=== PATIENT | female | born 1965 | race Caucasian/White ===

== ENCOUNTER 2018-04-12 11:33 | Day surgery (SDC) | payer BC, SELFPAY ==
[2018-04-12 11:50] VITALS: BP 118/78; PULSE 85; RESP 16; TEMP 35.9; O2SAT 97
[2018-04-12 12:04] VITALS: BP 118/78; PULSE 85; RESP 16; TEMP 35.9; O2SAT 97
[2018-04-12] MEDS: Lactated Ringers 1,000 ML 30 ML IV (12:20)
[2018-04-12] MEDS: Cellulose,Oxidized 2X3 PKT 1 EACH MC (14:35)
[2018-04-12] MEDS: Bupivacaine 0.25% Pres-Free 30 ML VIAL (14:36)
--- NOTE | 2018-04-12 14:51 | PDOC.DSDIS_ITS ---
Discharge Plan Disposition Patient Disposition: HOME Condition: Good Discharge Details Reason For Visit: ANAL PAIN Attending Provider: Héctor Easton Primary Care Provider: Elsa Childress Home Meds and New Rx's Prescriptions: Continue lorazepam 1 MG tablet 1 mg PO HS PRNRF: 0 sertraline 100 MG tablet 100 mg PO HS RF: 0 dextroamphetamine-amphetamine [Adderall XR] 30 MG capsule,extended release 24hr 30 mg PO DAILY RF: 0 multivitamin [Daily Multi-Vitamin] 1 EACH tablet 1 ea PO DAILY RF: 0 cyanocobalamin (vitamin B-12) 1,000 MCG tablet 1,000 mcg PO DAILY RF: 0 coenzyme Q10 100 MG capsule 100 mg PO DAILY RF: 0 chromium picolinate 400 MCG tablet 500 mcg PO DAILY RF: 0 folic acid [FA-8] 0.8 MG capsule 0.8 mg PO DAILY RF: 0 biotin 2,500 MCG capsule 5,000 mcg PO DAILY RF: 0 Lactobacillus acidophilus [Probiotic] 1 EACH capsule 1 ea PO DAILY RF: 0 Digestive 8/L.acidoph/Pectin [Digestive Enzymes Tablet] 1 EACH tablet 1 ea PO DAILY RF: 0 ared-2 eye vitamins 1 tab PO DAILY RF: 0 rosuvastatin [Crestor] 10 MG tablet 10 mg PO DAILY Qty: 90 RF: 3 bimatoprost [Latisse] 5 ML drops with applicator 5 ml Topical .QOD RF: 0 meloxicam 15 MG tablet 15 mg PO DAILY Qty: 90 RF: 0 acyclovir 400 MG tablet 400 mg PO TID Qty: 15 RF: 0 magnesium 250 mg Tablet 250 mg PO DAILY RF: 0 ferrous sulfate [iron] 325 mg (65 mg iron) Tablet 325 mg RF: 0 Discharge Instructions Instructions: Sphincterotomy (DC), Anal Fissure (GEN) Referrals: Héctor Easton DO [ [facility] STAFF PHYSICIAN] - 04/24/18 1:30 pm (Follow up after EUA with lateral sphincterotomy) Activity:: see instructions Remove Dressings/Wound Care:: 48 hours Shower/Bathe:: 48 hours Diet:: resume regular diet Discharge Orders Discharge Orders: Discharge Order (Routine); Ordered 04/12/18 Ordered By: Héctor Easton DS: Diagnosis Discharge Diagnosis (1) Anal or rectal pain: Status: Acute Asessment and Plan: Recommended EUA of anus and rectum with possible lateral sphincterotomy. Reviewed the procedure with Ms. Oliva, discussed the risks of the procedure with her. All her questions were answered to her satisfaction.
--- NOTE | 2018-04-12 15:02 | ROE_ITS ---
Date of service: 04/12/18 Time of Service: 14:57 Operative Note DATE OF PROCEDURE: 04/12/18 PRE-OP DIAGNOSIS: Anal Pain POST-OP DIAGNOSIS: other (Anal Fissure) PROCEDURE: 1. Examination of Anus and Rectum under anesthesia 2. Lateral Sphinterotomy SURGEON: Héctor Easton ALLEY WORKER: Zoraida Hanson ANESTHESIA: MAC (Anesthestisit: Arron Dexter CRNA ASA2; Mallampati II) and local (1.3% exparel mixed with 0.5% marcaine plain) ESTIMATED BLOOD LOSS: 3 PATHOLOGY: none sent COMPLICATIONS: None Patient was transported to: same day Patient's condition: stable Indications: 52 y/o female with symptoms c/w anal fissure, recommend EUA of anus and rectum to evaluate for etiology of anal pain. I reviwed the procedure with Ms. Uma Rubio, all her questions were answered to her satisfaction. She has been schedule for an EUA of anus and rectum Findings: On examining the anus and distal rectum, an anal fissure was identified in the posterior midline. The external sphincter muscle was significantly strictured consistent with a chronic anal fissure. A lateral sphincterotomy was subsequently performed Procedure Description: The patient was brought to the preanesthesia staging area where her identification was confirmed and consent signed. She was then brought to the operating room. An attempt was made to place a saddle block spinal anesthetic, but this was unsuccessful. We then proceeded with monitored anesthesia care and local infiltration around the anus as the plan. Monitoring for telemetry, end-tidal CO2, blood pressure, O2 saturation were applied. An appropriate timeout was taken reviewing the patient's identification, allergies, medications , procedure, and fire risk. The gluteal cleft was standard taping method, the perineum prepped with Betadine, and draped in standard sterile fashion. I began by performing a gentle digital rectal examination. There is no gross blood, no masses present. I then infiltrated my local circumferentially around the anus prior to dilating. I then placed a bullet anoscope and inspected the anus and rectum circumferentially. In the posterior midline, there was clearly a fissure present that seemed to have some chronicity to it. Palpation of the external sphincter muscle demonstrated stricturing of the proximal muscle approximately 1 cm in width and circumferential. No evidence of hemorrhoidal disease or other pathology was apparent. I then directed my attention 90? to the left of the anal fissure. I made a 1.5 cm radial incision, starting at the anal verge and going laterally. I then used blunt dissection with a hemostat to dissect anterior and posterior to the proximal external sphincter muscle. Once this was dissected out which I could clearly palpate anterior and posterior to the muscle; I then used a right angle clamp passed from posterior to anterior under the strictured portion of the external sphincter muscle. I then elevated this into the incision bed so that it was visible. The strictured muscle portion was approximately 1 cm in width. I divided this using cautery; after dividing the muscle I could no longer palpate a strictured segment circumferentially around the anus. I then obtained hemostasis in the wound bed using cautery, and a chromic stitch to oversew one area of bleeding with good hemostasis after stitch placement. I then reinforced my hemostasis using a small piece of Surgicel. 4 x 4's and a kristina-pad were then placed over the wound. There are no complications during the case. The patient tolerated procedure well. She was awakened in the operating room, and brought to the day surgery recovery area in good condition. All counts reported as correct ?2.
[2018-04-12 15:21] VITALS: BP 108/56; PULSE 81; RESP 16; TEMP 36.4; O2SAT 98
--- NOTE | 2018-04-24 14:06 | PDOC.ANES ---
Anesthesia Note Report Anesthesia Note: Called by Dr. Easton to touch base with Katy about ongoing headache. I called her cell phone and spoke to Katy. She states this headache started the day after surgery and she notices it as soon as she wakes up every morning. Headache does not change with position and she states that it is mild as she is still able to drive and ambulate. I expressed that this does not sound like it is a spinal headache given symptoms and that the spinal anesthetic was not successful with dural puncture. She stated that she was interested in going to a chiropractor which seems reasonable. She will call if this does not resolve or gets worse or she will see her PCP.
== END 2018-04-12 16:12 | disposition home or self-care (01) ==
PROVIDERS: PCP Nurse Practitioner; Visit Provider Surgery
PROC: (CPT 46080; principal; 2018-04-12 12:30)
PROC: (CPT 46080; 2018-04-12 12:30)
DX: K60.1 Chronic anal fissure (principal)
CPT/HCPCS: 46080; J1885; J2250

== ENCOUNTER 2018-04-17 14:54 | Outpatient (CLI) | payer BC, SELFPAY ==
[2018-04-17 15:39] LABS: HCT 47.8 % (36.0-46.0); HGB 15.2 g/dL (12.0-15.5); Mean Corp. HGB Concentration 31.8 g/dL (32.0-36.0); Mean Corpuscular Volume 94.5 fL (80-95); Mean Platelet Volume 9.8 fL (8.0-11.0); Platelet Count 238 x1000/uL (130-400); RBC 5.06 m/cumm (4.00-5.20); RBC Distribution Width 13.1 % (11.7-14.6); White Blood Cell Count 5.62 k/cumm (4.4-10.8)
[2018-04-17 16:36] LABS: Total Iron Binding Capacity 362 ug/dL (250-450)
[2018-04-17 17:03] LABS: ALT 21 U/L (12-78); AST 14 U/L (15-37); Albumin 3.8 g/dL (3.4-5.0); Alkaline Phosphatase 135 U/L (46-116); Anion Gap 6.1 mmol/L (3-11); BUN 22 mg/dL (7-18); Bilirubin, Total 0.4 mg/dL (0.2-1.0); CO2 31.9 mmol/L (21.0-32.0); CREATININE 0.77 mg/dL (0.55-1.02); Calcium 9.2 mg/dL (8.5-10.1); Chloride 105 mmol/L (98-107); Cholesterol 310 mg/dL (50-200); Ferritin 94 ng/mL (8-388); Glucose 103 mg/dL (70-100); HDL Cholesterol 78 mg/dL (40-60); LDL CHOLESTEROL 207 mg/dL (<100); Potassium 5.1 mmol/L (3.5-5.1); Sodium 143 mmol/L (136-145); Triglyceride 141 mg/dL (30-150); Vitamin B12 1393 pg/mL (193-986)
== END 2018-04-17 15:14 ==
PROVIDERS: PCP Nurse Practitioner; Visit Provider Nurse Practitioner
DX: Z98.84 Bariatric surgery status (principal)
CPT/HCPCS: 36415; 80053; 80061; 83721; 85027; 82607; 82728; 83550

== ENCOUNTER 2018-05-12 15:16 | Outpatient (REF) | payer BC, SELFPAY ==
[2018-05-12 21:30] LABS: Total Volume 2375 ml
[2018-05-12 21:37] LABS: CLEAVED CELLS 95 mmol/24h (40-220); Sodium, Urine 40 mmol/L
[2018-05-12 21:39] LABS: Creatinine,24hr Ur 1.11 g/24hr (0.60-1.80); Creatinine,Urine 48.22 mg/dL
[2018-05-15 10:18] LABS: Calcium Urine 9.6 mg/dl; Calcium Urine 24 hr 228 mg/24hr (100-300); Magnesium 24hr Urine 182.9 mg/24h (73.0-122.0); Magnesium Random Urine 7.7 mg/dl; Phosphorus Urine 23.3 mg/dl; Phosphorus Urine 24hr 0.6 g/24h (0.4-1.3); Uric Acid Urine 24hr 594 mg/24h (250-750)
[2018-05-15 15:22] LABS: Citrate Excretion, 24hr, U 366 mg/24 h (363 - 1191); Urine Volume 2375 mL
[2018-05-16 15:10] LABS: Oxalate Conc (mmol/L) 0.15 mmol/L; Oxalate Concentration 13.2 mg/L; Oxalate, U 0.36 mmol/24 h; Oxalate, U 31.7 mg/24 h (9.7 - 40.5); Urine Volume 2375 mL
== END 2018-05-12 15:36 ==
LOC: LBN 15:16
PROVIDERS: Nurse Practitioner Gerontology; PCP Nurse Practitioner; Visit Provider Nurse Practitioner
DX: Z87.442 Personal history of urinary calculi (principal)
CPT/HCPCS: 82507; 83735; 81050; 82340; 82570; 83945; 84105; 84300; 84560

== ENCOUNTER 2018-05-15 00:40 | Outpatient (CLI) | payer BC, SELFPAY ==
--- NOTE | 2018-05-15 13:06 | DI.US_ITS ---
SYMPTOM/DIAGNOSIS: BILAT FLANK PAIN, H/O KIDNEY STONES, Z87.442 RENAL ULTRASOUND: The kidneys are normal in size and echogenicity and show normal parenchymal thickness. No hydronephrosis is seen. There are a few tiny echogenic reflectors in the medullary region which could represent non obstructing stones versus vascular calcifications or artifact. No mass or hydronephrosis is seen. The prevoid bladder volume measured 42 cc's. There is a 4 cc. post void residual. No bladder mass or bladder calcification is seen. Both ureteral jets were identified. IMPRESSION: Question of a few tiny bilateral renal calculi versus artifact.
== END 2018-05-15 01:00 ==
PROVIDERS: PCP Nurse Practitioner; Visit Provider Nurse Practitioner Gerontology
DX: R10.31 Right lower quadrant pain (principal); R10.32 Left lower quadrant pain; N20.0 Calculus of kidney; Z87.442 Personal history of urinary calculi
CPT/HCPCS: 76770

== ENCOUNTER 2018-05-15 13:20 | Outpatient (CLI) | payer BC, SELFPAY ==
--- NOTE | 2018-05-15 14:00 | SATEXT_ITS ---
Assessment: Katy presents for nutritional counseling for s/p bariatric surgery. She has gotten to her goal weight and states she would like to be sure to maintain it. She is 68 and 165 lbs. Her BMI is 26.5 kg/m2. Katy reports that she is craving sugar lately and will eat three [place]ic ices in the evenings. She has a [place] yogurt and a banana for breakfast, salad with tuna and avocado for lunch, and has a late supper of a protein shake and avocado. She has been eating gluten free and low lactose. She generally has been very physically active but her physical activity has been reduced in the past week related to some intestinal issues. Nutritional Diagnosis: Inappropriate intake of carbohydrates especially sugars. Intervention: Reviewed some areas in Katy's diet where she could increase her protein which may in turn help to decrease her sugar intake. Also reminded Katy that her physical activity is reduced beyond her control and that physical activity reduces appetite. Her appetite and sugar cravings may be on the rise related to the decreased physical activity. She acknowledged this fact and verbalized that she will be patient with the return of her physical activity. Monitoring and Evaluation: 1. Katy will self monitor her progress and evaluate her need for follow up as needed. Thank you for the referral.
== END 2018-05-15 13:40 ==
PROVIDERS: PCP Nurse Practitioner; Visit Provider Dietitian, Registered
DX: Z98.84 Bariatric surgery status (principal); Z71.3 Dietary counseling and surveillance
CPT/HCPCS: 97802

== ENCOUNTER 2018-05-24 23:41 | Emergency (ER) | payer BC, SELFPAY ==
--- NOTE | 2018-05-24 00:29 | DI.CT_ITS ---
SYMPTOMS/DIAGNOSIS: RIGHT FLANK PAIN CT EXAMINATION OF THE ABDOMEN AND PELVIS: The study was carried out without contrast enhancement. There are no acute findings in the lower thorax. The liver is normal. The gallbladder is normal. There are no stones or ductal dilatation. The pancreas, spleen and adrenals are normal. There are several small nonobstructing renal calculi measuring 1-2 mm in size. There is a 2 mm right UVJ stone causing mild hydronephrosis and perinephric stranding. There is colonic diverticulosis and no evidence of diverticulitis. There is no evidence of an acute appendix. The bladder and reproductive organs are unremarkable. The intraperitoneal space is normal. There is no free air or free fluid. No acute bony abnormality is seen. The soft tissues are unremarkable. There is no aortic aneurysm. Lymph nodes are unremarkable. SUMMARY: Mild hydronephrosis involving the right kidney is demonstrated secondary to a 2 mm right UVJ calculus.
[2018-05-24 23:44] VITALS: BP 142/86; PULSE 83; RESP 24; TEMP 36.5; O2SAT 95
[2018-05-24] MEDS: Normal Saline 1,000 ML 1000 ML IV (23:55)
--- NOTE | 2018-05-24 23:56 | ED.GENADUL_ITS ---
Discharge Plan Disposition Patient Disposition: HOME Condition: Improving Discharge Details Chief Complaint: FlankPain Clinical Impression: Kidney stone on right side Primary Care Provider: Elsa Childress ED Provider: Alec Muse Home Meds and New Rx's Prescriptions: New ciprofloxacin HCl 250 mg tablet 250 mg PO BID Qty: 6 RF: 0 tamsulosin [Flomax] 0.4 mg capsule 0.4 mg PO DAILY Qty: 3 RF: 0 Continue acyclovir 400 mg tablet 400 mg PO TID Qty: 15 RF: 12 lorazepam 1 MG tablet 1 mg PO HS PRNRF: 0 sertraline 100 MG tablet 100 mg PO HS RF: 0 dextroamphetamine-amphetamine [Adderall XR] 30 MG capsule,extended release 24hr 30 mg PO BID RF: 0 multivitamin [Daily Multi-Vitamin] 1 EACH tablet 1 ea PO DAILY RF: 0 cyanocobalamin (vitamin B-12) 1,000 MCG tablet 1,000 mcg PO DAILY RF: 0 coenzyme Q10 100 MG capsule 100 mg PO DAILY RF: 0 chromium picolinate 400 MCG tablet 500 mcg PO DAILY RF: 0 folic acid [FA-8] 0.8 MG capsule 0.8 mg PO DAILY RF: 0 biotin 2,500 MCG capsule 5,000 mcg PO DAILY RF: 0 Lactobacillus acidophilus [Probiotic] 1 EACH capsule 1 ea PO DAILY RF: 0 Digestive 8/L.acidoph/Pectin [Digestive Enzymes Tablet] 1 EACH tablet 1 ea PO DAILY RF: 0 ared-2 eye vitamins 1 tab PO DAILY RF: 0 bimatoprost [Latisse] 5 ML drops with applicator 5 ml Topical .QOD RF: 0 meloxicam 15 MG tablet 15 mg PO DAILY Qty: 90 RF: 0 rosuvastatin [Crestor] 10 mg tablet 10 mg PO DAILY Qty: 90 RF: 3 magnesium 250 mg Tablet 250 mg PO DAILY RF: 0 Discharge Instructions Instructions: Kidney Stones (ED) Additional Instructions: Please follow-up with Kavitha and Dr. Simmons's office in the next 5-10 days. Call for an appointment time. Home to rest today. Antibiotics to begin tomorrow morning by prescription, you are given her first dose tonight. Please take Flomax as prescribed for 3 days time. Return to the emerge part for any acute concern Medical Decision Making 52-year-old female presents with severe right flank pain over hours time similar to previous kidney stone. She is afebrile, anxious, in some distress as I walk into the room. Differential diagnosis would include pyelonephritis, cystitis, as well as renal colic. Patient had IV access established, referred for laboratory testing and urinalysis as well as noncontrast CT scan of the abdomen pelvis. Patient's pain improved following fluids and pain medications. Her laboratories are reassuring with do show white blood cell count of 14, creatinine 1.0, sodium was 135. Urinalysis with ketones and positive leukoesterase. CT scan of the abdomen reveals a 2 mm right UVJ stone. Patient tolerated liquids and solids by mouth. She has no further complaints of pain. I will treat her with Flomax for 3 days as well as a course of ciprofloxacin. She will follow-up with urology with whom she has preestablished care Lab Data Lab results reviewed: Yes I reviewed the patient's lab results. Laboratory Tests Range/Units 05/24/18 05/24/18 05/25/18 23:50 23:50 00:25 WBC (4.4-10.8) k/cumm 14.91 H RBC (4.00-5.20) m/cumm 4.43 Hgb (12.0-15.5) g/dL 13.8 Hct (36.0-46.0) % 40.0 MCV (80-95) fL 90.3 MCH (27.0-33.0) pg 31.2 MCHC (32.0-36.0) g/dL 34.5 RDW (11.7-14.6) % 12.0 Plt Count (130-400) x1000/uL 276 MPV (8.0-11.0) fL 9.3 Immature Gran % 0.3 Neutrophils % 73.7 Lymphocytes % 18.9 Monocytes % 6.2 Eosinophils % 0.7 Basophils % 0.2 Absolute Neutrophils (1.2-6.7) k/cumm 10.99 H Absolute Lymphocytes (1.2-3.4) k/cumm 2.82 Absolute Monocytes (0.11-0.7) k/cumm 0.92 H Absolute Eosinophils (0.0-0.7) k/cumm 0.10 Absolute Basophils (0.0-0.2) k/cumm 0.03 Sodium (136-145) mmol/L 135 L Potassium (3.5-5.1) mmol/L 3.7 Chloride (98-107) mmol/L 98 Carbon Dioxide (21.0-32.0) mmol/L 28.0 Anion Gap (3-11) mmol/L 9.0 BUN (7-18) mg/dL 18 Creatinine (0.55-1.02) mg/dL 1.09 H Estimated GFR/1.73 m2 (mL/min/1.73m2) 53.13 Glucose (70-100) mg/dL 121 H Calcium (8.5-10.1) mg/dL 9.0 Total Bilirubin (0.2-1.0) mg/dL 0.5 AST (15-37) U/L 19 ALT (12-78) U/L 23 Alkaline Phosphatase (46-116) U/L 111 Total Protein (6.4-8.2) g/dL 6.7 Albumin (3.4-5.0) g/dL 3.7 Lipase (73-393) U/L 210 Urine Color (Yellow) Yellow Urine Clarity Sl cloudy Urine pH (5-8) 6.0 Ur Specific [place] (1.005-1.025) 1.025 Urine Protein (Negative) mg/dL Negative Urine Ketones (Negative) mg/dL Trace H Urine Blood (Negative) Negative Urine Nitrite (Negative) Negative Urine Bilirubin (Negative) Negative Urine Urobilinogen (Up TO 0.2) EU/dL 0.2 Ur Leukocyte Esterase (Negative) Trace H Urine Glucose (Negative) mg/dL Negative HPI General Mode of arrival: ambulatory . Date/Time Provider Initiated Documentation: 05/24/18 23:41 . Limitations to Documentation: no limitations . Information obtained by: patient and family . History of Present Illness 52 year old F presents to the emergency department with the chief complaint of Right flank pain, described as severe and similar to prior episodes, Quality is described as constant, and is localized to the back and abdomen. Patient flank. Patient started experiencing this hour(s) and it has been constant. No exacerbating factors reported . Patient notes nausea/vomiting; denies fever/chills. Patient did receive the following treatments prior to arrival, other (Hydrocodone) HPI Narrative: 52-year-old female presents from home with the onset today of hours of right flank pain that is intermittent, radiates to the front, associated with nausea and vomiting, similar to previous kidney stone. She denies recent fever. She does not have chest pain. Related Data Home Medications Medication Instructions Recorded Confirmed lorazepam 1 mg PO HS PRN tab-cap 04/11/17 05/24/18 Ared-2 Eye Vitamins 1 tab PO DAILY 04/28/17 05/24/18 Digestive 8/L.acidoph/Pectin 1 ea PO DAILY 04/28/17 05/24/18 [Digestive Enzymes Tablet] Lactobacillus acidophilus 1 ea PO DAILY 04/28/17 05/24/18 [Probiotic] biotin 5,000 mcg PO DAILY 04/28/17 05/24/18 chromium picolinate 500 mcg PO DAILY 04/28/17 05/24/18 coenzyme Q10 100 mg PO DAILY 04/28/17 05/24/18 cyanocobalamin (vitamin B-12) 1,000 mcg PO DAILY 04/28/17 05/24/18 dextroamphetamine-amphetamine 30 mg PO BID 04/28/17 05/24/18 [Adderall XR] folic acid [FA-8] 0.8 mg PO DAILY 04/28/17 05/24/18 multivitamin [Daily Multi-Vitamin] 1 ea PO DAILY 04/28/17 05/24/18 sertraline 100 mg PO HS tab-cap 04/28/17 05/24/18 bimatoprost [Latisse] 5 ml TOPICAL .QOD 06/20/17 05/24/18 meloxicam 15 mg PO DAILY #90 tab-cap 02/06/18 05/24/18 magnesium 250 mg PO DAILY 04/12/18 05/24/18 acyclovir 400 mg tablet 400 mg PO TID #15 tab-cap 04/17/18 05/24/18 rosuvastatin 10 mg tablet 10 mg PO DAILY #90 tab 04/18/18 05/24/18 ciprofloxacin HCl 250 mg PO BID #6 tab 05/25/18 tamsulosin [Flomax] 0.4 mg PO DAILY #3 cap 05/25/18 Previous Rx's Medication Instructions Recorded meloxicam 15 mg PO DAILY #90 tab-cap 02/06/18 acyclovir 400 mg tablet 400 mg PO TID #15 tab-cap 04/17/18 rosuvastatin 10 mg tablet 10 mg PO DAILY #90 tab 04/18/18 ciprofloxacin HCl 250 mg PO BID #6 tab 05/25/18 tamsulosin [Flomax] 0.4 mg PO DAILY #3 cap 05/25/18 Allergies Allergy/AdvReac Type Severity Reaction Status Date / Time lactose Allergy Intermediate Diarrhea Verified 05/24/18 23:47 adhesive AdvReac Intermediate Verified 05/24/18 23:47 gluten AdvReac Diarrhea Verified 05/24/18 23:47 General Stated Complaint: FlankPain DOLLY: 3 Review of Systems Review of Systems 8 systems reviewed and otherwise negative PFSH Family History Mother Mental disorder Inflammatory bowel disease Father Neoplasm ADHD (attention deficit hyperactivity disorder) Medical History ADD (attention deficit disorder) (Chronic) Anxiety (Chronic) Depression (Chronic) Social History current occupational status: employed current occupation: [employer], 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 Pleasant, well groomed, interactive, anxious HEAD: Normocephalic, atraumatic ENT: Mucous membranes moist, oropharynx unremarkable, External ear exam unremarkable EYES: PERRL, EOMI NECK: Full ROM, no COLTON, no menigismus CHEST/RESP: Nontender, clear to auscultation bilateral, no wheeze/rhonchi/rales CARDIOVASCULAR: RRR, no murmur, rub lilian. 2+ Rad pulse bilateral ABDOMEN: Soft, tender area in the right abdomen, no mass. +Bowel sounds EXT: Full ROM, no edema, no rash Neuro: Grossly normal neurologic exam, conversant, interactive. Psych: Speech fluent, thoughts congruent, affect anxious Course Vital Signs Temperature 36.5 C 05/24/18 23:44 Pulse 83 10/31/18 23:44 Respiratory Rate 24 05/24/18 23:44 Blood Pressure 142/86 H 05/24/18 23:44 Pulse Oximetry 95 05/24/18 23:44 Temperature 36.5 C 05/24/18 23:44 Temperature Source Skin 05/24/18 23:44 Pulse 83 05/24/18 23:44 Respiratory Rate 24 05/24/18 23:44 Respiratory Effort Non-Labored 05/24/18 23:45 Blood Pressure 142/86 H 05/24/18 23:44 Blood Pressure Position Supine 05/24/18 23:44 Pulse Oximetry 95 05/24/18 23:44 Oxygen Delivery Method Room Air 05/24/18 23:44 Oxygen Flow Rate 0 05/24/18 23:44 Pain Level 05/24/18 23:44
[2018-05-24 23:59] LABS: Abs Immature Grans 0.04 k/cumm (0.0-0.09); Absolute Basophil Count 0.03 k/cumm (0.0-0.2); Absolute Lymphocyte Count 2.82 k/cumm (1.2-3.4); Absolute Monocyte Count 0.92 k/cumm (0.11-0.7); Absolute Neutrophil Count 10.99 k/cumm (1.2-6.7); Basophils % 0.2; Eosinophils % 0.7; HGB 13.8 g/dL (12.0-15.5); Immature Grans % 0.3; Lymphocytes % 18.9; Mean Corp. HGB Concentration 34.5 g/dL (32.0-36.0); Mean Corpuscular Hemoglobin 31.2 pg (27.0-33.0); Mean Corpuscular Volume 90.3 fL (80-95); Mean Platelet Volume 9.3 fL (8.0-11.0); Monocytes % 6.2; Neutrophils % 73.7; Platelet Count 276 x1000/uL (130-400); RBC 4.43 m/cumm (4.00-5.20); White Blood Cell Count 14.91 k/cumm (4.4-10.8)
[2018-05-25] MEDS: Ondansetron 4 MG/2 ML VIAL IVP
[2018-05-25] MEDS: LORazepam 2 MG/ML VIAL 1 MG IVP
[2018-05-25] MEDS: HYDROmorphone 2 MG/ML VIAL 1 MG IVP (00:01)
[2018-05-25 00:11] LABS: ALT 23 U/L (12-78); AST 19 U/L (15-37); Albumin 3.7 g/dL (3.4-5.0); Alkaline Phosphatase 111 U/L (46-116); BUN 18 mg/dL (7-18); Bilirubin, Total 0.5 mg/dL (0.2-1.0); CREATININE 1.09 mg/dL (0.55-1.02); Chloride 98 mmol/L (98-107); Estimated GFR 53.13 (mL/min/1.73m2); Glucose 121 mg/dL (70-100); Lipase 210 U/L (73-393); Potassium 3.7 mmol/L (3.5-5.1); Sodium 135 mmol/L (136-145); Total Protein 6.7 g/dL (6.4-8.2)
[2018-05-25 00:33] LABS: Bilirubin Negative (Negative); Blood Negative (Negative); Clarity Sl Cloudy; Glucose Negative (Negative); Ketones Trace mg/dL (Negative); Leukocyte Esterase Trace (Negative); Nitrite Negative (Negative); Specific Gravity 1.025 (1.005-1.025); Urobilinogen 0.2 EU/dL (Up TO 0.2)
[2018-05-25 00:40] LABS: Bacteria Few HPF (Negative); C & S Indicated? No/Sq. Contamination; Casts Negative LPF (Negative); Crystals Negative HPF (Negative); Epithelial Cells Many HPF (Negative); Mucus Negative (Negative)
--- NOTE | 2018-05-25 00:41 | DI.VRAD_ITS ---
EXAM: CT Abdomen and Pelvis Without Intravenous Contrast EXAM DATE/TIME: 05/24/2018 11:53 PM CLINICAL HISTORY: 52 years old, female; Pain; Other: Flank; Prior surgery; Surgery date: 1-6 months; Surgery type: Rectal spincterotomy 03/2018 and gastric sleeve last year; Patient HX: R flank pain, HX kidney stones TECHNIQUE: Axial computed tomography images of the abdomen and pelvis without intravenous contrast. All CT scans at this facility use at least one of these dose optimization techniques: automated exposure control; mA and/or kV adjustment per patient size (includes targeted exams where dose is matched to clinical indication); or iterative reconstruction. Coronal and sagittal reformatted images were created and reviewed. COMPARISON: US renal 05/15/2018 1:09 PM FINDINGS: Lower thorax: No acute findings. ABDOMEN: Liver: Normal. No mass. Gallbladder and bile ducts: Normal. No calcified stones. No ductal dilation. Pancreas: Normal. No ductal dilation. Spleen: Normal. No splenomegaly. Adrenals: Normal. No mass. Kidneys and ureters: Several small nonobstructing right renal calculi measuring 1-2 mm in size. 2 mm right UVJ stone causes mild hydronephrosis and perinephric stranding. Stomach and bowel: Colonic diverticulosis. Appendix: No evidence of appendicitis. PELVIS: Bladder: Unremarkable as visualized. Reproductive: Unremarkable as visualized. ABDOMEN and PELVIS: Intraperitoneal space: Normal. No free air. No significant fluid collection. Bones/joints: No acute fracture. No dislocation. Soft tissues: Unremarkable. Vasculature: Normal. No abdominal aortic aneurysm. Lymph nodes: Normal. No enlarged lymph nodes. IMPRESSION: 2 mm right UVJ stone causes mild hydronephrosis. Dictated and Authenticated by: Salvador Sylvester MD. Ordering:JOSH MILES MD
[2018-05-25] MEDS: Ciprofloxacin 500 MG TAB PO (01:03)
[2018-05-25] MEDS: Tamsulosin 0.4 MG CAPCR PO (01:03)
[2018-05-25 01:07] VITALS: BP 129/55; PULSE 63; RESP 18; TEMP 36.5; O2SAT 96
== END 2018-05-25 01:07 | disposition home or self-care (01) ==
LOC: ER 05-25 01:10
PROVIDERS: Emergency Provider Emergency Medicine; PCP Nurse Practitioner
DX: N20.0 Calculus of kidney (principal)
CPT/HCPCS: 36415; 80053; 83690; 96361; 96374; 96375; 99284; 74176; 81003; 81015; 85025; J2060; J2405